=== PATIENT | male | born 1945 | race Caucasian/White ===

== ENCOUNTER → 2016-10-31 | Day surgery (SDC) | payer MEDICARE ==
[~2016-10-31] MED LIST: AMOX500T2 PO; ASPI81 PO; BUPIVACAINE HCL PF 0.25% 30 ML VIAL ONE; LACTATED RINGER'S 1000 ML INJ 1,000 ML ONE; LORT5TAB PO; MIDAZOLAM HCL 2 MG/2 ML VIAL ONE; PROPOFOL 500 MG/50 ML BTL IV ONE; TAB-TAB PO; ceFAZolin 2 GM PREMIX 50 ML ONE
--- NOTE | 2016-11-04 09:59 | MP ---
cc: DARIEN WHEELER DPM DATE OF SURGERY 10/31/2016 PREOPERATIVE DIAGNOSIS Painful right second digit hammertoe contracture. POSTOPERATIVE DIAGNOSIS Painful right second digit hammertoe contracture. PROCEDURES PERFORMED Right second digit amputation. SPECIMEN Digit, clinically hammertoe. No signs of infection. ESTIMATED BLOOD LOSS Less than 30 mL. COMPLICATIONS None. ANESTHESIA MAC with local. DRAINS None. TOURNIQUET TIME 10 minutes at a setting of 215 mmHg about the patient's right ankle. PLAN OF ACTIVITY PACU, then D/C home once stable per same-day surgery criteria. PROCEDURE IN DETAIL Under mild sedation, the patient was brought into the operating room, placed on the operative table in supine position. Following the induction of general anesthesia, local anesthesia was obtained about the forefoot utilizing standard block fashion. The right foot was then scrubbed, prepped and draped in the usual aseptic fashion. The foot was elevated, exsanguinated and the previously inflated mid-ankle tourniquet was inflated at 215 mmHg. A curvilinear elliptical lollipop type incision was made at the base of the second digit. This was full-thickness. Bovie and ligation took place of those neurovascular structures that were encountered. Utilizing a 15 blade, extensor and flexor tendons were severed disarticulating the digit at the level of the second MPJ. Upon examining the tissue at this level. It was clean, no signs of contamination and appeared to be viable. The digit was then passed off for pathological analysis. Routine fascial and deep dermal layer was then closed utilizing Vicryl. The skin was closed utilizing nylon. Upon relieving the tourniquet there was a prompt hyperemic response to all digits aside from the previously amputated so digits 1, 3, 4 and 5. Bulky bandage was placed, the patient transferred from OR to PACU with all vital signs stable. DISCHARGE INSTRUCTIONS He is heel weight-bear. Transfer to tolerance. He will elevate. He will follow up within 3-5 days. BAILEY Samuel/LOREE /1:42 PM /9:52 AM
== END | disposition home or self-care (01) ==
LOC: ESDC 11:13
PROVIDERS: ATTEND Podiatrist Foot & Ankle Surgery
DX: M20.41 Other hammer toe(s) (acquired), right foot (principal)
CPT/HCPCS: 01480; 28820; 88305; 88311; J0690; J2250; J3010; J7120